=== PATIENT | female | born 1955 | race Caucasian/White ===

== ENCOUNTER → 2023-07-18 | Outpatient (CLI) | payer MEDICARE, OTHER ==
[~2023-07-18] MED LIST: CELEBREX 200MG200 MG PO; DORYX100 PO; HYGROTON 2525 MG/TAB PO; LIPITOR20 MG PO; MITIGARE0.6 MG PO; NORVASC 5MG5 MG/TAB PO
== END ==
LOC: COL.RAD 09:43
DX: N82.3 Fistula of vagina to large intestine (principal)
CPT/HCPCS: Q9967